=== PATIENT | male | born 1980 | race Caucasian/White ===

== ENCOUNTER 2017-05-30 18:10 | Emergency (ER) | payer MEDICAID ==
[2017-05-30 18:34] VITALS: RESP 16; TEMP 98.2
[2017-05-30] MEDS ORDERED: METAXALONE 800 MG TAB PO ONE (19:14)
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
--- NOTE | 2017-05-30 19:27 | CPEKG ---
Heart Rate: 60 RR Interval: 1000 P-R Interval: 148 QRSD Interval: 92 QT Interval: 404 QTC Interval: 404 P [place]: 51 QRS [place]: 59 T Wave [place]: 46 EKG Severity - NORMAL ECG - EKG Impression: SINUS RHYTHM Electronically Signed By: Homero Marroquin 30-May-2017 19:35:21
[2017-05-30 19:33] VITALS: BP 126/79; PULSE 58; O2SAT 94
== END 2017-05-30 20:08 | disposition home or self-care (01) ==
DX: M54.6 Pain in thoracic spine (principal); Z87.891 Personal history of nicotine dependence

== ENCOUNTER 2017-06-14 06:18 | Emergency (ER) | payer MEDICAID ==
[2017-06-14 06:24] VITALS: TEMP 97.5
[2017-06-14] MEDS ORDERED: KETOROLAC 30 MG/1 ML SDV IM ONE (07:08)
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
[2017-06-14 07:43] VITALS: BP 116/74; PULSE 69; RESP 16; O2SAT 97
== END 2017-06-14 07:42 | disposition home or self-care (01) ==
DX: G24.3 Spasmodic torticollis (principal); Z87.891 Personal history of nicotine dependence
CPT/HCPCS: J1885

== ENCOUNTER → 2019-05-07 | Outpatient (CLI) | payer MEDICAID | LOC: FIMAGING 15:07 ==